=== PATIENT | female | born 1940 | race Caucasian/White ===

== ENCOUNTER 2017-09-28 05:50 | Day surgery (SDC) | payer MEDICARE, OTHER ==
[~2017-09-28] VITALS: Ht 152.4 cm; Wt 64.5 kg
[2017-09-28] MEDS ORDERED: LACTATED RINGERS 1,000 ML IV SCH (06:04)
[2017-09-28 06:12] VITALS: BP 127/87
[2017-09-28] MEDS ORDERED: LIDOCAINE 1%, 20ML ONE (06:13)
[2017-09-28] MEDS ORDERED: EPINEPHRINE 1 MG/ML, 1ML ONE (06:13)
[2017-09-28] MEDS ORDERED: BUPIVACAINE/PF 0.5% ONE (06:13)
[2017-09-28 06:24] VITALS: BP 127/87
[2017-09-28] MEDS ORDERED: LEVO125T PO (06:34)
[2017-09-28] MEDS ORDERED: CYCL5TAB PO (06:34)
[2017-09-28] MEDS ORDERED: HYDR-3237 PO (06:34)
[2017-09-28] MEDS ORDERED: ROCURONIUM 10 MG/ML,10ML ONE (07:03)
[2017-09-28] MEDS ORDERED: PROPOFOL 10 MG/ML, 20ML ONE (07:03)
[2017-09-28] MEDS ORDERED: LIDOCAINE-MPF 2% ,5ML ONE (07:03)
[2017-09-28] MEDS ORDERED: ONDANSETRON 2MG/ML, 2ML ONE (07:08)
[2017-09-28] MEDS ORDERED: DEXAMETHASONE 4 MG/ML, 1ML ONE ×4 (07:08)
[2017-09-28] MEDS ORDERED: ONDANSETRON 2MG/ML, 2ML IVPush PRN (07:30)
[2017-09-28] MEDS ORDERED: ACETAMINOPHEN 325 MG TABLET PO PRN (07:30)
[2017-09-28] MEDS ORDERED: MEPERIDINE/PF 25MG/0.5ML IVPush PRN (07:30)
[2017-09-28] MEDS ORDERED: CEFAZOLIN 1,000 MG ONE (07:41)
[2017-09-28] MEDS ORDERED: OMNIPAQUE 180 MG/ML, 20ML VIAL IT ONE (08:16)
[2017-09-28] MEDS ORDERED: FENTANYL PF 100 MCG/2ML ONE ×2 (08:33→09:36)
[2017-09-28] MEDS ORDERED: ACETAMINOPHEN 650 MG/20.3 ML UDC ONE (09:36)
[2017-09-28] MEDS: FENTANYL PF 100 MCG/2ML IV PRN ×2 (09:38→09:45)
[2017-09-28] MEDS ORDERED: OXYcodone 5 MG/5 ML ORAL.SOL UDC ONE ×2 (09:40→09:57)
[2017-09-28] MEDS: OXYcodone 5 MG/5 ML ORAL.SOL UDC PO PRN ×2 (09:42→09:58)
[2017-09-28] MEDS ORDERED: morphine SULFATE 10 MG/ML, 1ML ONE (09:46)
[2017-09-28] MEDS: morphine SULFATE 10 MG/ML, 1ML IV PRN ×2 (09:50→10:03)
[2017-09-28] MEDS ORDERED: HYDROcodone/APAP 7.5-325MG/15ML UDC PO PRN (10:00)
[2017-09-28] MEDS ORDERED: MEPERIDINE/PF 50 MG/ML ONE (10:08)
[2017-09-28] MEDS ORDERED: DIAZEPAM 5 MG/ML, 2ML IVPush PRN (10:30)
== END 2017-09-28 13:10 ==
LOC: OUT 05:50
PROVIDERS: ATTEND Orthopaedic Surgery Orthopaedic Surgery of the Spine
DX: M80.88XA Other osteoporosis with current pathological fracture, vertebra(e), initial encounter for fracture (principal); E11.9 Type 2 diabetes mellitus without complications; E03.9 Hypothyroidism, unspecified; G43.909 Migraine, unspecified, not intractable, without status migrainosus; Z85.038 Personal history of other malignant neoplasm of large intestine; Z90.49 Acquired absence of other specified parts of digestive tract; Z98.890 Other specified postprocedural states
CPT/HCPCS: 22514; 72100; 88307; 88311; C1713; J0171; J0690; J1100; J2175; J2270; J2405; J2704; J3010; J3360; J3490; J7120; Q9965

== ENCOUNTER 2017-10-26 05:43 | Day surgery (SDC) | payer MEDICARE, OTHER ==
[~2017-10-26] VITALS: Ht 152.4 cm; Wt 64.5 kg
[~2017-10-26 05:43] MED LIST: CYCL5TAB PO; HYDR-3237 PO; LEVO125T PO
[2017-10-26] MEDS ORDERED: LACTATED RINGERS 1,000 ML IV SCH ×2 (06:36→07:25)
[2017-10-26] MEDS ORDERED: BUPIVACAINE/PF 0.5% ONE (06:58)
[2017-10-26] MEDS ORDERED: LIDOCAINE 1%, 20ML ONE (06:58)
[2017-10-26] MEDS ORDERED: EPINEPHRINE 1 MG/ML, 1ML ONE (06:58)
[2017-10-26] MEDS ORDERED: FENTANYL PF 100 MCG/2ML ONE ×2 (07:13→09:10)
[2017-10-26 07:15] VITALS: BP 145/86
[2017-10-26] MEDS ORDERED: LIDOCAINE GEL 2%, 5ML ONE (07:16)
[2017-10-26] MEDS ORDERED: LIDOCAINE-MPF 2% ,5ML ONE (07:17)
[2017-10-26] MEDS ORDERED: PHENYLEPHRINE 10 MG/ML ONE (07:50)
[2017-10-26] MEDS ORDERED: SUCCINYLCHOLINE 20 MG/ML, 10ML ONE (07:50)
[2017-10-26] MEDS ORDERED: CEFAZOLIN 1,000 MG ONE (08:49)
[2017-10-26] MEDS ORDERED: ONDANSETRON 2MG/ML, 2ML ONE (08:49)
[2017-10-26] MEDS ORDERED: DEXAMETHASONE 4 MG/ML, 1ML ONE (08:49)
[2017-10-26] MEDS ORDERED: PROPOFOL 10 MG/ML, 20ML ONE (08:49)
[2017-10-26] MEDS ORDERED: MEPERIDINE/PF 25MG/0.5ML IVPush PRN (09:00)
[2017-10-26] MEDS ORDERED: LABETALOL 5MG/ML, 20ML IV PRN (09:00)
[2017-10-26] MEDS ORDERED: PROMETHAZINE 25 MG/ML, 1ML IV PRN (09:00)
[2017-10-26] MEDS ORDERED: OXYcodone 5 MG/5 ML ORAL.SOL UDC PO PRN (09:00)
[2017-10-26] MEDS ORDERED: MIDAZOLAM 1 MG/ML, 2ML IV PRN (09:00)
[2017-10-26] MEDS ORDERED: hydrALAzine 20 MG/ML, 1ML IV PRN (09:00)
[2017-10-26] MEDS ORDERED: ONDANSETRON 2MG/ML, 2ML IVPush PRN (09:00)
[2017-10-26] MEDS ORDERED: ACETAMINOPHEN 325 MG TABLET PO PRN (09:00)
[2017-10-26] MEDS ORDERED: morphine SULFATE 10 MG/ML, 1ML IV PRN (09:00)
[2017-10-26] MEDS ORDERED: PROMETHAZINE 12.5 MG SUPP PR PRN (09:00)
[2017-10-26] MEDS ORDERED: ACETAMINOPHEN 650 MG/20.3 ML UDC ONE (09:02)
[2017-10-26] MEDS ORDERED: OXYcodone 5 MG/5 ML ORAL.SOL UDC ONE (09:02)
[2017-10-26] MEDS ORDERED: OMNIPAQUE 180 MG/ML, 20ML VIAL ONE (09:07)
[2017-10-26] MEDS ORDERED: CYCLOBENZAPRINE 10 MG TABLET ONE (09:10)
[2017-10-26] MEDS: FENTANYL PF 100 MCG/2ML IV PRN ×2 (09:16→09:43)
[2017-10-26] MEDS ORDERED: CYCLOBENZAPRINE 10 MG TABLET PO ONE (09:30)
== END 2017-10-26 11:15 ==
LOC: OUT 05:43
PROVIDERS: ATTEND Orthopaedic Surgery Orthopaedic Surgery of the Spine
DX: M80.88XA Other osteoporosis with current pathological fracture, vertebra(e), initial encounter for fracture (principal); M54.5 Low back pain; E03.9 Hypothyroidism, unspecified; G43.909 Migraine, unspecified, not intractable, without status migrainosus; Z88.6 Allergy status to analgesic agent; Z88.5 Allergy status to narcotic agent; Z88.8 Allergy status to other drugs, medicaments and biological substances; Z87.39 Personal history of other diseases of the musculoskeletal system and connective tissue; Z96.652 Presence of left artificial knee joint; Z85.038 Personal history of other malignant neoplasm of large intestine
CPT/HCPCS: 22513; 72072; 88307; 88311; J0171; J0330; J0690; J1100; J2370; J2405; J2704; J3010; J3490; J7120; Q9965; 95938; 95941; C1713